=== PATIENT | female | born 1985 | race Caucasian/White ===

== ENCOUNTER 2016-08-19 21:38 | Emergency (ER) | payer OTHER ==
[~2016-08-19] VITALS: Ht 162.6 cm; Wt 128.0 kg
[~2016-08-19 21:38] MED LIST: METH10TA2 PO
[2016-08-19 21:41] VITALS: TEMP 37.2; Ht 162.6 cm; Wt 128.0 kg
[2016-08-19] MEDS ORDERED: CEFTRIAXONE SOD INJ 1 GM ADDVIAL IV STA (22:02)
[2016-08-19 22:30] LABS: BASO % 0.1 %; BASO ABS # 0.02 K/uL (0-0.2); COMPLETE YES; EOS % 1.2 %; HEMATOCRIT 37.4 % (37-47); IG% 0.1 %; LYMPH % 21.7 %; LYMPH ABS # 3.11 K/uL (1.2-3.4); MEAN CELL VOLUME 87.8 fL (80-100); MEAN CORPUSCULAR HEMOGLOBIN 30.3 pg (25-34); MEAN CORPUSCULAR HGB CONC 34.5 g/dl (32-36); MEAN PLATELET VOLUME 10.5 fL (7.4-10.4); NEUT % 69.9 %; PLATELET COUNT 306 K/uL (130-400); RED BLOOD COUNT 4.26 M/uL (4.2-5.4); WHITE BLOOD COUNT 14.33 K/uL (4.8-10.8)
--- NOTE | 2016-08-19 22:41 | DIAGNOSTIC IMAGING REPORT ---
RIGHT ELBOW 3 VIEWS CLINICAL HISTORY: Right arm cellulitis. FINDINGS: 3 views of the right elbow are obtained. No prior studies are available for comparison at the time of dictation. The skeletal structures are well mineralized. No acute fracture is seen. Chronic posttraumatic change is noted in the distal humerus. A buttress plate is present along the distal humeral shaft. Additional cortical lag screws transfix the humeral capitellum and trochlea. There is no joint effusion. Soft tissue edema is present in the imaged right upper extremity. IMPRESSION: 1. Chronic and postoperative change as above. No acute bony abnormality is seen. 2. Soft tissue edema is present in the right upper extremity. Electronically signed by: J Luis Dumont M.D. 08/19/2016 10:40 PM Dictated Date/Time: 08/19/2016 10:38 PM
[2016-08-19] MEDS ORDERED: ALPR-411 PO (22:53)
[2016-08-19] MEDS ORDERED: ZOLP10TA6 PO (22:53)
[2016-08-19] MEDS ORDERED: CITA40TA4 PO (22:53)
[2016-08-19 22:59] LABS: BLOOD UREA NITROGEN 14 mg/dl (7-18); BUN/CREATININE RATIO 14.4 (10-20); CARBON DIOXIDE 27 mmol/L (21-32); CHLORIDE 102 mmol/L (98-107); CREATININE 0.99 mg/dl (0.60-1.20); GLUCOSE 94 mg/dl (70-99); SODIUM 135 mmol/L (136-145)
[2016-08-19 23:16] LABS: CALCIUM 8.7 mg/dl (8.5-10.1)
[2016-08-20] MEDS ORDERED: CEPH500C PO (00:34)
[2016-08-20] MEDS ORDERED: SULF800T23 PO (00:34)
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
[2016-08-20 00:50] VITALS: BP 133/94; PULSE 103; O2SAT 95
--- NOTE | 2016-08-20 07:08 | DIAGNOSTIC IMAGING REPORT ---
RIGHT UPPER EXTREMITY VENOUS DOPPLER HISTORY: right arm pain, swelling/redness Right COMPARISON STUDY: None. FINDINGS: The right internal jugular vein is patent. There is normal flow within the right subclavian vein. There is normal flow and compressibility within the right axillary, basilic, brachial, radial, ulnar, and visualized cephalic veins. IMPRESSION: No DVT within the right upper extremity. Electronically signed by: Julien Hartman M.D. 08/20/2016 7:07 AM Dictated Date/Time: 08/20/2016 7:06 AM
== END 2016-08-20 00:52 | disposition home or self-care (01) ==
LOC: C.EDB 21:39
DX: L03.113 Cellulitis of right upper limb (principal); Z86.14 Personal history of Methicillin resistant Staphylococcus aureus infection